=== PATIENT | female | born 1950 | race Hispanic/Latino ===

== ENCOUNTER 2017-10-23 19:21 | Emergency (ER) | payer MEDICARE ==
[~2017-10-23 19:21] MED LIST: ASPI81TA40 PO; CARV6.25 PO; ESOM40CA PO; HYDR25TA PO; INSLAN SQ; LATA2.5D2 OU; METF500T6 PO; METO100T14 PO; POTA20TA82 PO; PRAV80TA21 PO; TRAM50TA4 PO
[2017-10-23] MEDS ORDERED: IBUPROFEN 600 MG TABLET ONE (19:36)
[2017-10-23] MEDS ORDERED: CYCLOBENZAPRINE HCL 10 MG TABLET ONE (19:37)
== END 2017-10-23 21:30 | disposition home or self-care (01) ==
LOC: EDH 19:21
DX: G57.01 Lesion of sciatic nerve, right lower limb (principal); E11.9 Type 2 diabetes mellitus without complications; E78.5 Hyperlipidemia, unspecified; I10 Essential (primary) hypertension; Z91.041 Radiographic dye allergy status

== ENCOUNTER → 2019-10-04 | Outpatient (CLI) | payer MEDICARE ==
[~2019-10-04] MED LIST changes: +ACET1TAB15 PO; +AMLO10TA7 PO; +ATOR40TA69 PO; +CIPR-278 PO; +DEXL60CA3 PO; -ESOM40CA PO; -HYDR25TA PO; -INSLAN SQ; +INSU100I26 SQ; +METF-444 PO; -METF500T6 PO; -METO100T14 PO; +METR500T PO; +MONT10TA24 PO; -POTA20TA82 PO; -PRAV80TA21 PO; -TRAM50TA4 PO
[2019-10-04 14:43] LABS: BASOPHILS % (AUTO) 0.6 % (0.0-5.0); EOSINOPHILS % (AUTO) 2.1 % (0.0-8.0); HEMATOCRIT 34.4 % (36-48); LYMPHOCYTES % (AUTO) 22.6 % (21.0-51.0); MEAN CORPUSCULAR HEMOGLOBIN 26.1 pg (27.0-33.0); MEAN CORPUSCULAR VOLUME 81.5 fL (79-99); MONOCYTES % (AUTO) 5.2 % (3.0-13.0); NEUTROPHILS % (AUTO) 68.8 % (40.0-77.0); PLATELET COUNT (AUTO) 278 K/uL (130-400); RED BLOOD CELL COUNT(AUTO) 4.22 MIL/uL (4.00-5.50); RED CELL DISTRIBUTION WIDTH 16.6 % (11.0-15.5); WHITE BLOOD COUNT (AUTO) 7.1 K/uL (4.8-10.8)
== END | disposition home or self-care (01) ==
LOC: LAB 11:14
PROVIDERS: ATTEND Internal Medicine Gastroenterology
DX: R19.5 Other fecal abnormalities (principal); R19.4 Change in bowel habit
CPT/HCPCS: 36415; 85025; 87507

== ENCOUNTER 2020-01-30 18:06 | Inpatient (IN) | payer MEDICARE ==
[~2020-01-30] VITALS: Ht 152.4 cm; Wt 76.6 kg
[~2020-01-30 18:06] MED LIST changes: +AMLO-258 PO; -AMLO10TA7 PO; -MONT10TA24 PO; +MONT10TA26 PO
[2020-01-30] MEDS ORDERED: ONDANSETRON HCL 4 MG/2 ML VIAL ONE (18:38)
[2020-01-30 18:44] LABS: BASOPHILS % (AUTO) 0.2 % (0.0-5.0); EOSINOPHILS % (AUTO) 0.5 % (0.0-8.0); HEMATOCRIT 35.6 % (36-48); LYMPHOCYTES % (AUTO) 23.4 % (21.0-51.0); MEAN CORPUSCULAR HGB CONC 32.6 g/dL (32.0-36.0); MEAN CORPUSCULAR VOLUME 79.6 fL (79-99); MONOCYTES % (AUTO) 5.8 % (3.0-13.0); NEUTROPHILS % (AUTO) 69.7 % (40.0-77.0); PLATELET COUNT (AUTO) 271 K/uL (130-400); RED BLOOD CELL COUNT(AUTO) 4.47 MIL/uL (4.00-5.50); RED CELL DISTRIBUTION WIDTH 16.2 % (11.0-15.5); WHITE BLOOD COUNT (AUTO) 8.3 K/uL (4.8-10.8)
[2020-01-30] MEDS ORDERED: MORPHINE SULFATE 4 MG/1ML SYG ONE (18:48)
[2020-01-30 19:05] LABS: BILIRUBIN,TOTAL 0.5 mg/dL (0.2-1.0); CREATININE 0.9 mg/dL (0.5-1.5)
[2020-01-30 19:06] LABS: ALBUMIN 3.3 g/dL (3.5-5.0); BILIRUBIN,DIRECT 0.2 mg/dL (0.0-0.3); TOTAL PROTEIN, SERUM 7.9 g/dL (6.0-8.3)
[2020-01-30 19:08] LABS: POTASSIUM 2.9 mmol/L (3.5-5.1)
[2020-01-30] MEDS ORDERED: LIDOCAINE HCL-MPF 1% 2ML VIAL ONE (20:37)
[2020-01-30] MEDS ORDERED: POTASSIUM CHLORIDE 20MEQ/100ML 100 ML IV ONE (20:37)
[2020-01-30 20:42] LABS: APPEARANCE,URINE Cloudy (CLEAR); BILIRUBIN,URINE Negative (NEGATIVE); COLOR,URINE Yellow (YELLOW); GLUCOSE, URINE (UA) Negative (NEGATIVE); KETONES,URINE Negative (NEGATIVE); LEUKOCYTE ESTERASE ,URINE Small (NEGATIVE); NITRATE,URINE Negative (NEGATIVE); OCCULT BLOOD,URINE Negative (NEGATIVE); PROTEIN,URINE Negative (NEGATIVE)
[2020-01-30 20:54] LABS: BACTERIA,URINE Moderate /HPF (None Seen); RBC,URINE 0-1 /HPF (0-1)
[2020-01-30 20:55] LABS: SQUAMOUS EPITHELIAL CELL,UR Rare /HPF (0-2)
[2020-01-30 20:58] LABS: TRANSITIONAL EPI CELLS,URINE Rare /HPF (None Seen)
[2020-01-30] MEDS ORDERED: LIDOCAINE HCL-MPF 1% 2ML VIAL IJ PRN (21:00)
[2020-01-30] MEDS ORDERED: ONDANSETRON HCL 4 MG/2 ML VIAL IVP PRN (21:00)
[2020-01-30] MEDS ORDERED: CEFTRIAXONE SODIUM 1 GM ONE (21:15)
[2020-01-30 21:30] VITALS: BP 161/80
[2020-01-30] MEDS ORDERED: HYDROMORPHONE HCL 0.5 MG/0.5 ML ML IVP PRN (22:15)
[2020-01-30] MEDS ORDERED: OMEP20CA12 PO (22:45)
[2020-01-30] MEDS ORDERED: OXYB-66 PO (22:45)
[2020-01-30] MEDS ORDERED: HYDR25TA PO (22:45)
[2020-01-30] MEDS ORDERED: POTA-79 PO (22:45)
[2020-01-30] MEDS: LACTATED RINGERS 1000ML 1,000 ML IV SCH (22:51)
[2020-01-30] MEDS: FAMOTIDINE/PF 20 MG/2 ML VIAL IV SCH (22:51)
[2020-01-30 23:42] VITALS: BP 122/53
[2020-01-31] MEDS ORDERED: LIDOCAINE HCL-MPF 1% 2ML VIAL IV PRN (00:15)
--- NOTE | 2020-01-31 00:20 | NUR ---
JACKSON FULTON NOTIFIED OF MAGNESIUM LEVEL OF 1.6, NO NEW ORDERS
[2020-01-31] MEDS ORDERED: LIDOCAINE HCL-MPF 1% 2ML VIAL ONE (00:25)
[2020-01-31] MEDS: POTASSIUM CHLORIDE 20MEQ/100ML 100 ML IV PRN ×3 (00:27→10:49)
[2020-01-31 03:58] VITALS: BP 149/73
[2020-01-31 05:02] LABS: HEMATOCRIT 32.8 % (36-48); MEAN CORPUSCULAR HEMOGLOBIN 26.2 pg (27.0-33.0); MEAN CORPUSCULAR HGB CONC 32.3 g/dL (32.0-36.0); MEAN CORPUSCULAR VOLUME 81.2 fL (79-99); RED BLOOD CELL COUNT(AUTO) 4.04 MIL/uL (4.00-5.50); RED CELL DISTRIBUTION WIDTH 16.3 % (11.0-15.5); WHITE BLOOD COUNT (AUTO) 6.9 K/uL (4.8-10.8)
[2020-01-31 05:20] LABS: CREATININE 0.7 mg/dL (0.5-1.5); MAGNESIUM 1.5 mg/dL (1.80-2.40); POTASSIUM 3.3 mmol/L (3.5-5.1)
[2020-01-31] MEDS: LACTATED RINGERS 1000ML 1,000 ML IV SCH ×4 (06:39→20:31)
[2020-01-31 08:00] VITALS: BP 132/55
[2020-01-31] MEDS: FAMOTIDINE/PF 20 MG/2 ML VIAL IV SCH ×2 (09:17→20:24)
[2020-01-31 11:26] VITALS: BP 141/70
[2020-01-31] MEDS: MAGNESIUM 2GM PREMIX 50ML 50 ML IV SCH (14:50)
--- NOTE | 2020-01-31 15:08 | NUR ---
RD NOTIFICATION Pt NPO with Intestinal Obstruction, as per EMR. Pending surgical recommendations. NGT for suction. If NPO greater than five days, recommend altered means nutrition, as medically feasible. RD to continue to monitor. Please notify as additional nutrition concerns arise. Addendum: 01/31/20 at [address] Amended: Links added.
[2020-01-31 16:00] VITALS: BP 121/61
[2020-01-31 20:46] VITALS: BP 144/67
[2020-01-31 23:57] VITALS: BP 133/58
[2020-02-01 03:24] VITALS: BP 142/69
[2020-02-01] MEDS: LACTATED RINGERS 1000ML 1,000 ML IV SCH ×3 (04:08→20:50)
[2020-02-01 05:23] LABS: HEMATOCRIT 33.7 % (36-48); MEAN CORPUSCULAR HEMOGLOBIN 26.2 pg (27.0-33.0); MEAN CORPUSCULAR HGB CONC 32.3 g/dL (32.0-36.0); PLATELET COUNT (AUTO) 231 K/uL (130-400); RED BLOOD CELL COUNT(AUTO) 4.16 MIL/uL (4.00-5.50); RED CELL DISTRIBUTION WIDTH 15.9 % (11.0-15.5); WHITE BLOOD COUNT (AUTO) 5.8 K/uL (4.8-10.8)
[2020-02-01 05:51] LABS: CREATININE 0.7 mg/dL (0.5-1.5); MAGNESIUM 1.8 mg/dL (1.80-2.40); POTASSIUM 3.2 mmol/L (3.5-5.1)
[2020-02-01] MEDS: MAGNESIUM 2GM PREMIX 50ML 50 ML IV SCH (06:37)
[2020-02-01 07:47] VITALS: BP 153/78
[2020-02-01 09:04] LABS: BASOPHILS % (MANUAL) 1 % (0-2); EOSINOPHILS % (MANUAL) 2 % (1-6); LYMPHOCYTES % (MANUAL) 28 % (22-44); MONOCYTES % (MANUAL) 3 % (2-9); SEGMENTED NEUTROPHILS % 66 % (40-70)
[2020-02-01 09:05] LABS: MAN.DIFF COMMENT-IMPRESSION MANUAL DIFFERENTIAL; PLATELET MORPHOLOGY COMMENT ADEQUATE
[2020-02-01] MEDS: FAMOTIDINE/PF 20 MG/2 ML VIAL IV SCH ×2 (10:21→20:49)
[2020-02-01] MEDS: POTASSIUM CHLORIDE 10% ELIXIR 20 MEQ/15 ML UDCUP PO PRN ×3 (10:23→16:25)
[2020-02-01 10:51] VITALS: BP 156/69
--- NOTE | 2020-02-01 13:41 | NUR ---
[facility] CM spoke to pt's daughter Priya Ayala discussed dc plans. Pt is independent prior to admission, lives at home alone, daughter lives close by. Per daughter pt has provider at home 23hrs/wk. Denies any other equipments/services. Feels safe to go back home, daughter able to assist with transportation and needs as necessary. DC Plan to home once stable. CM to cont to follow up. Addendum: 02/01/20 at 1343 by CARLOS ARCHULETA LVN CM Amended: Links added.
--- NOTE | 2020-02-01 14:54 | NUR ---
I SPOKE TO DR FULTON ABOUT RESUMING HOME MEDS AND HE STATED MAYBE TOMORROW, NOT YET TODAY
[2020-02-01 16:00] VITALS: BP 146/77
--- NOTE | 2020-02-01 16:21 | NUR ---
1600 patient signed IM Letter, I faxed IM Letter to [phone] and placed in chart under consent tab.
[2020-02-01] MEDS: ENOXAPARIN SODIUM 40 MG/0.4 ML SYRINGE SQ SCH (16:25)
[2020-02-01] MEDS: INSULIN HUMULIN R 100 UNIT/ML 3ML SQ SCH ×2 (16:30→20:55)
[2020-02-01 19:49] VITALS: BP 154/65
[2020-02-02 01:06] VITALS: BP 154/65
[2020-02-02 03:52] VITALS: BP 138/68
[2020-02-02 04:32] LABS: BASOPHILS % (AUTO) 0.5 % (0.0-5.0); EOSINOPHILS % (AUTO) 2.9 % (0.0-8.0); HEMATOCRIT 34.8 % (36-48); LYMPHOCYTES % (AUTO) 23.4 % (21.0-51.0); MEAN CORPUSCULAR HEMOGLOBIN 26.2 pg (27.0-33.0); MEAN CORPUSCULAR HGB CONC 32.2 g/dL (32.0-36.0); MEAN CORPUSCULAR VOLUME 81.5 fL (79-99); MONOCYTES % (AUTO) 7.1 % (3.0-13.0); NEUTROPHILS % (AUTO) 65.6 % (40.0-77.0); PLATELET COUNT (AUTO) 239 K/uL (130-400); RED BLOOD CELL COUNT(AUTO) 4.27 MIL/uL (4.00-5.50); WHITE BLOOD COUNT (AUTO) 6.6 K/uL (4.8-10.8)
[2020-02-02] MEDS: LACTATED RINGERS 1000ML 1,000 ML IV SCH ×2 (04:48→18:22)
[2020-02-02 04:54] LABS: CREATININE 0.7 mg/dL (0.5-1.5); MAGNESIUM 1.9 mg/dL (1.80-2.40); POTASSIUM 3.3 mmol/L (3.5-5.1)
[2020-02-02] MEDS: INSULIN HUMULIN R 100 UNIT/ML 3ML SQ SCH ×4 (05:56→20:27)
[2020-02-02] MEDS: POTASSIUM CHLORIDE 20 MEQ ERTAB PO PRN ×3 (06:22→14:22)
[2020-02-02 07:30] VITALS: BP 166/76
[2020-02-02] MEDS: FAMOTIDINE/PF 20 MG/2 ML VIAL IV SCH ×2 (08:18→20:17)
[2020-02-02] MEDS: ENOXAPARIN SODIUM 40 MG/0.4 ML SYRINGE SQ SCH (08:22)
[2020-02-02 11:00] VITALS: BP 143/78
[2020-02-02] MEDS: CEFTRIAXONE SODIUM 1 GM IVP SCH (14:21)
[2020-02-02 16:00] VITALS: BP 145/74
[2020-02-02] MEDS: METFORMIN HCL 500 MG TABLET PO SCH (17:31)
[2020-02-02 19:42] VITALS: BP 128/67
[2020-02-02] MEDS: CARVEDILOL 6.25 MG TABLET PO SCH (20:18)
[2020-02-02] MEDS ORDERED: ATORVASTATIN CALCIUM 40 MG TABLET PO SCH (21:00)
[2020-02-02] MEDS ORDERED: LATANOPROST 2.5 ML DROPS OU SCH (21:00)
[2020-02-03 00:03] VITALS: BP 122/57
[2020-02-03] MEDS: LACTATED RINGERS 1000ML 1,000 ML IV SCH ×3 (00:37→14:11)
[2020-02-03 04:36] LABS: BASOPHILS % (AUTO) 0.4 % (0.0-5.0); EOSINOPHILS % (AUTO) 2.8 % (0.0-8.0); HEMATOCRIT 32.7 % (36-48); LYMPHOCYTES % (AUTO) 25.7 % (21.0-51.0); MEAN CORPUSCULAR HGB CONC 31.8 g/dL (32.0-36.0); MEAN CORPUSCULAR VOLUME 81.8 fL (79-99); MONOCYTES % (AUTO) 7.2 % (3.0-13.0); NEUTROPHILS % (AUTO) 62.9 % (40.0-77.0); PLATELET COUNT (AUTO) 237 K/uL (130-400); RED CELL DISTRIBUTION WIDTH 16.2 % (11.0-15.5); WHITE BLOOD COUNT (AUTO) 6.7 K/uL (4.8-10.8)
[2020-02-03 04:52] VITALS: BP 124/70
[2020-02-03 04:52] LABS: ALBUMIN 2.8 g/dL (3.5-5.0); BILIRUBIN,TOTAL 0.3 mg/dL (0.2-1.0); CREATININE 0.9 mg/dL (0.5-1.5); MAGNESIUM 1.7 mg/dL (1.80-2.40)
[2020-02-03] MEDS: INSULIN HUMULIN R 100 UNIT/ML 3ML SQ SCH ×3 (06:29→16:30)
[2020-02-03] MEDS: MAGNESIUM 2GM PREMIX 50ML 50 ML IV SCH (06:30)
[2020-02-03] MEDS ORDERED: INSULIN GLARGINE 100 UNITS/ML 10 ML VIAL SQ SCH (07:30)
[2020-02-03 08:00] VITALS: BP 148/75
[2020-02-03] MEDS: METFORMIN HCL 500 MG TABLET PO SCH ×2 (08:42→16:55)
[2020-02-03] MEDS: CARVEDILOL 6.25 MG TABLET PO SCH (08:42)
[2020-02-03] MEDS: ENOXAPARIN SODIUM 40 MG/0.4 ML SYRINGE SQ SCH (08:43)
[2020-02-03] MEDS: FAMOTIDINE/PF 20 MG/2 ML VIAL IV SCH (08:44)
[2020-02-03] MEDS ORDERED: AMLODIPINE BESYLATE 5 MG TAB PO SCH (09:00)
[2020-02-03] MEDS ORDERED: OXYBUTYNIN 5 MG TAB.SR.24H PO SCH (09:00)
[2020-02-03] MEDS ORDERED: POTASSIUM CHLORIDE 20 MEQ ERTAB PO SCH (09:00)
[2020-02-03] MEDS ORDERED: MONTELUKAST SODIUM 10 MG TAB PO SCH (09:00)
[2020-02-03 12:00] VITALS: BP 145/84
--- NOTE | 2020-02-03 13:12 | NUR ---
RD FOLLOW UP NG tube feeding discontinued. Diet advanced to 75gm CCD. Pt tolerating with no report of GI distress, fair appetite @75%. Recommend add 30mL ProMod BID RD to continue to monitor. Please notify as nutrition concerns arise. Thank you. Addendum: 02/03/20 at [address] RD Amended: Links added.
[2020-02-03] MEDS: CEFTRIAXONE SODIUM 1 GM IVP SCH (14:03)
[2020-02-03] MEDS ORDERED: CEPH500B PO (16:58)
--- NOTE | 2020-02-03 18:50 | NUR ---
Discharge instructions, prescribed medications and follow up appointments reviewed. Patient verbalized understanding of instructions. Prescription for Keflex provided to patient. Escorted patient to ER entrance via wheelchair where family received to transport home.
== END 2020-02-03 19:34 | disposition home or self-care (01) | DRG 389 ==
LOC: EDH 18:06 → EDHIP 20:19 → OBSVTOIN 20:19 → 3CH 21:01
PROVIDERS: ADMIT Internal Medicine Nephrology; ATTEND Internal Medicine Nephrology
DX: K56.609 Unspecified intestinal obstruction, unspecified as to partial versus complete obstruction (principal); N39.0 Urinary tract infection, site not specified; J98.11 Atelectasis; E87.6 Hypokalemia; D64.9 Anemia, unspecified; E83.42 Hypomagnesemia; B96.20 Unspecified Escherichia coli [E. coli] as the cause of diseases classified elsewhere; E03.9 Hypothyroidism, unspecified; E11.9 Type 2 diabetes mellitus without complications; E78.5 Hyperlipidemia, unspecified; I10 Essential (primary) hypertension; Z90.49 Acquired absence of other specified parts of digestive tract; Z90.710 Acquired absence of both cervix and uterus; Z91.013 Allergy to seafood; Z88.8 Allergy status to other drugs, medicaments and biological substances
CPT/HCPCS: 36415; 74018; 74176; 80048; 80053; 80076; 81001; 82550; 82948; 83690; 83735; 84484; 85025; 85027; 87077; 87088; 87186; 93005; G0378; J0696; J1170; J1650; J1815; J2270; J2405; J3475; J3480; J3490; J7120

== ENCOUNTER 2020-07-07 15:24 | Inpatient (IN) | payer MEDICARE ==
[~2020-07-07] VITALS: Ht 152.4 cm; Wt 72.5 kg
[~2020-07-07 15:24] MED LIST changes: -ACET1TAB15 PO; -ASPI81TA40 PO; +CEPH500B PO; -CIPR-278 PO; -DEXL60CA3 PO; -METR500T PO; +OMEP20CA12 PO; +OXYB-66 PO
[2020-07-07] MEDS ORDERED: ONDANSETRON HCL 4 MG/2 ML VIAL ONE (15:49)
[2020-07-07] MEDS ORDERED: MORPHINE SULFATE 2 MG/ML 1ML SYG ONE (15:50)
[2020-07-07 15:51] LABS: BASOPHILS % (AUTO) 0.3 % (0.0-5.0); EOSINOPHILS % (AUTO) 0.5 % (0.0-8.0); HEMATOCRIT 39.5 % (36-48); LYMPHOCYTES % (AUTO) 17.1 % (21.0-51.0); MEAN CORPUSCULAR HEMOGLOBIN 26.3 pg (27.0-33.0); MEAN CORPUSCULAR HGB CONC 32.4 g/dL (32.0-36.0); MEAN CORPUSCULAR VOLUME 81.3 fL (79-99); MONOCYTES % (AUTO) 4.7 % (3.0-13.0); NEUTROPHILS % (AUTO) 77.1 % (40.0-77.0); PLATELET COUNT (AUTO) 276 K/uL (130-400); RED BLOOD CELL COUNT(AUTO) 4.86 MIL/uL (4.00-5.50); RED CELL DISTRIBUTION WIDTH 16.4 % (11.0-15.5); WHITE BLOOD COUNT (AUTO) 9.1 K/uL (4.8-10.8)
[2020-07-07 16:00] LABS: CREATININE 0.9 mg/dL (0.5-1.5); POTASSIUM 3.5 mmol/L (3.5-5.1)
[2020-07-07 16:05] LABS: ALBUMIN 3.8 g/dL (3.5-5.0); BILIRUBIN,TOTAL 0.6 mg/dL (0.2-1.0); TOTAL PROTEIN, SERUM 8.9 g/dL (6.0-8.3)
[2020-07-07 19:48] VITALS: BP 128/72
[2020-07-07] MEDS ORDERED: ONDANSETRON HCL 4 MG/2 ML VIAL IVP PRN (20:15)
[2020-07-07] MEDS: METOCLOPRAMIDE 10 MG/2 ML VIAL IVP SCH (20:26)
[2020-07-07] MEDS: SODIUM CHLORIDE 0.9% 1000ML 1,000 ML IV SCH (20:28)
--- NOTE | 2020-07-07 20:30 | NUR ---
covid rapid test presumptive negative, reported by lab pack chemist.
[2020-07-07] MEDS ORDERED: IBUP-2070 PO (20:52)
[2020-07-07] MEDS ORDERED: POTA20TA82 PO (20:52)
[2020-07-07] MEDS ORDERED: LOSA1TAB54 PO (20:52)
[2020-07-07] MEDS ORDERED: METF-446 PO (20:52)
[2020-07-07] MEDS ORDERED: HYDR25TA PO (20:52)
[2020-07-08] VITALS (7 sets, daily range): BP systolic 120–153; BP diastolic 59–82
[2020-07-08] MEDS: SODIUM CHLORIDE 0.9% 1000ML 1,000 ML IV SCH (03:13)
[2020-07-08] MEDS: METOCLOPRAMIDE 10 MG/2 ML VIAL IVP SCH ×3 (05:14→21:18)
[2020-07-08 05:18] LABS: HEMATOCRIT 35.5 % (36-48); MEAN CORPUSCULAR HGB CONC 31.8 g/dL (32.0-36.0); MEAN CORPUSCULAR VOLUME 81.6 fL (79-99); RED BLOOD CELL COUNT(AUTO) 4.35 MIL/uL (4.00-5.50); RED CELL DISTRIBUTION WIDTH 16.2 % (11.0-15.5); WHITE BLOOD COUNT (AUTO) 7.6 K/uL (4.8-10.8)
[2020-07-08 05:32] LABS: CREATININE 0.7 mg/dL (0.5-1.5); POTASSIUM 3.4 mmol/L (3.5-5.1)
--- NOTE | 2020-07-08 08:00 | NUR ---
PT . AAOX3 REVIEW,PLAN OF CARE, NG TO HER LT NARE , AND RETURN GASTRIC , SCREATION . . . YELLOWISH, THICK . ABD SOFT, PT S TATED THAT SHE HAS BEEN GAS, DENIES ANY ABD PAIN, CALL LIGHT IN REACH.
[2020-07-08] MEDS: PANTOPRAZOLE 40 MG/VIAL IVP SCH (10:20)
[2020-07-08] MEDS ORDERED: DEXTROSE 50%-WATER 50 ML DISP.SYRIN IV ONE (11:41)
[2020-07-08] MEDS ORDERED: DEXTROSE 50%-WATER 50 ML DISP.SYRIN IV SCH (11:45)
--- NOTE | 2020-07-08 11:50 | NUR ---
BLOOD SUGAR OF 61 , CALL[address] DR. CURRY WITH DR. WALLACE TO FOLLOW
--- NOTE | 2020-07-08 11:55 | NUR ---
GAVE 1/2 OF DEXTROSE 50% IVP FOR BLOOD SUGAR OF 61
--- NOTE | 2020-07-08 13:30 | NUR ---
DR. CURRY HERE , AND UPDATE WITH TO FOLLOW FOLLOWUP BLOOD SUGAR OF 112,
[2020-07-08] MEDS: LACTATED RINGERS 1000ML 1,000 ML IV SCH (16:20)
--- NOTE | 2020-07-08 19:00 | NUR ---
D/C PLAN CM spoke to pt regarding d/c planning. Pt is ind. and lives alone. States she will be moving in with daughter when discharged. States daughter assists in care as needed. Has wk at home. No needs verbalized or identified. Plan to home. CM to f/u. Addendum: 07/08/20 at 1902 by LIONEL SANTA CM Amended: Links added.
[2020-07-09 04:11] VITALS: BP 147/79
[2020-07-09 05:08] LABS: BASOPHILS % (AUTO) 0.4 % (0.0-5.0); HEMATOCRIT 35.3 % (36-48); LYMPHOCYTES % (AUTO) 18.8 % (21.0-51.0); MEAN CORPUSCULAR HEMOGLOBIN 25.9 pg (27.0-33.0); MEAN CORPUSCULAR HGB CONC 31.7 g/dL (32.0-36.0); MEAN CORPUSCULAR VOLUME 81.5 fL (79-99); MONOCYTES % (AUTO) 6.7 % (3.0-13.0); PLATELET COUNT (AUTO) 199 K/uL (130-400); RED BLOOD CELL COUNT(AUTO) 4.33 MIL/uL (4.00-5.50); RED CELL DISTRIBUTION WIDTH 16.4 % (11.0-15.5); WHITE BLOOD COUNT (AUTO) 6.9 K/uL (4.8-10.8)
[2020-07-09 05:23] LABS: CREATININE 0.8 mg/dL (0.5-1.5); PHOSPHORUS 2.6 mg/dL (2.5-4.9)
[2020-07-09 05:54] LABS: POTASSIUM 2.9 mmol/L (3.5-5.1)
[2020-07-09] MEDS: METOCLOPRAMIDE 10 MG/2 ML VIAL IVP SCH ×3 (06:02→19:57)
[2020-07-09 08:21] VITALS: BP 142/77
[2020-07-09] MEDS: PANTOPRAZOLE 40 MG/VIAL IVP SCH (08:36)
[2020-07-09] MEDS: LACTATED RINGERS 1000ML 1,000 ML IV SCH ×5 (08:36→21:29)
--- NOTE | 2020-07-09 10:10 | NUR ---
RD NOTIFICATION Pt admitted due to SBO. Pt currently NPO awaiting diet advancement. RD will continue to monitor PO status/tolerance and PO intake. Pt had a low blood sugar 07/08/20. Pt's BMI is of 31.2 indicative of obesity. LABS: K 2.9, BG 79, Alb 3.8, Tot Pro 8.9 Last Bowel Movement: 07/07/20 RD recommendation: When medically feasible advance to a heart healthy diet with a 75 gm CC modifier. Monitor BG levels if necessary adjust to a 60 gm CC modifier. Monitor pt's potassium levels, consider potassium replacement. Addendum: 07/09/20 at [address] Amended: Links added.
[2020-07-09] MEDS ORDERED: LIDOCAINE HCL-MPF 1% 2ML VIAL ONE (10:13)
[2020-07-09] MEDS: POTASSIUM CHLORIDE 20 MEQ/100 ML BAG IV SCH (10:24)
[2020-07-09 11:36] VITALS: BP_SYST 70
[2020-07-09 16:43] VITALS: BP 128/78
[2020-07-09 19:00] VITALS: BP 128/68
[2020-07-10] VITALS: BP 138/80
[2020-07-10 04:00] VITALS: BP 115/55
[2020-07-10 04:32] LABS: CREATININE 0.6 mg/dL (0.5-1.5); POTASSIUM 3.4 mmol/L (3.5-5.1)
[2020-07-10] MEDS: METOCLOPRAMIDE 10 MG/2 ML VIAL IVP SCH (05:01)
[2020-07-10] MEDS: LACTATED RINGERS 1000ML 1,000 ML IV SCH (05:13)
[2020-07-10 07:55] VITALS: BP 138/61
[2020-07-10] MEDS: PANTOPRAZOLE 40 MG/VIAL IVP SCH (08:52)
[2020-07-10] MEDS: POTASSIUM CHLORIDE 20 MEQ/100 ML BAG IV SCH (09:15)
[2020-07-10 11:14] VITALS: BP 148/85
--- NOTE | 2020-07-10 14:35 | NUR ---
DISCHARGE PATIENT GIVEN INSTRUCTIONS VIA TEACH BACK. 20G PIV TO BECK DISCONTINUED, TIP INTACT. PATIENT TO FOLLOW UP WITH DR. FULTON AND DR. MERINO IN 1 TO 2 WEEKS. CONTINUE ON GI SOFT DIET AND TAKE MEDICATIONS ORDERED. PATIENT STABLE AT THIS TIME. PATIENT WHEELED TO [facility] FOR DISCHARGE BY THUY WILSON.
== END 2020-07-10 15:15 | disposition home or self-care (01) | DRG 390 ==
LOC: EDH 15:24 → EDHIP 18:22 → 3AH 19:28
PROVIDERS: ADMIT Internal Medicine Nephrology; ATTEND Internal Medicine Nephrology
PROC: 0D9670Z Drainage of Stomach with Drainage Device, Via Natural or Artificial Opening (ICD-10-PCS; principal; 2020-07-07)
DX: K56.609 Unspecified intestinal obstruction, unspecified as to partial versus complete obstruction (principal); I10 Essential (primary) hypertension; E78.00 Pure hypercholesterolemia, unspecified; E87.8 Other disorders of electrolyte and fluid balance, not elsewhere classified; E11.649 Type 2 diabetes mellitus with hypoglycemia without coma; Z90.710 Acquired absence of both cervix and uterus; Z91.013 Allergy to seafood; Z91.041 Radiographic dye allergy status; Z83.3 Family history of diabetes mellitus; Z82.49 Family history of ischemic heart disease and other diseases of the circulatory system
CPT/HCPCS: 36415; 74176; 80048; 80053; 82948; 83690; 84100; 84484; 85025; 85027; 87426; 93005; C9113; G0378; J2405; J2765; J3480; J3490; J7070; J7120; U0003

== ENCOUNTER 2021-02-20 15:54 | Emergency (ER) | payer OTHER, MEDICARE ==
[~2021-02-20] VITALS: Ht 154.9 cm; Wt 83.9 kg
[~2021-02-20 15:54] MED LIST changes: +IBUP-2070 PO; +LATA2.5D14 OU; -LATA2.5D2 OU; +LOSA1TAB54 PO; -METF-444 PO; +METF-446 PO; -MONT10TA26 PO; +MONT10TA32 PO; +POTA20TA82 PO
[2021-02-20] MEDS ORDERED: HYDROCODONE/ACETAMINOPHEN 10/325 MG TAB PO ONE (16:15)
[2021-02-20] MEDS ORDERED: TRAM1TAB PO (16:24)
[2021-02-20 16:31] VITALS: BP 119/47
== END 2021-02-20 16:54 | disposition home or self-care (01) ==
LOC: EDH 15:54
DX: M17.11 Unilateral primary osteoarthritis, right knee (principal); I10 Essential (primary) hypertension; E66.9 Obesity, unspecified; E78.5 Hyperlipidemia, unspecified; E11.9 Type 2 diabetes mellitus without complications; Z91.041 Radiographic dye allergy status; Z91.013 Allergy to seafood; Z79.899 Other long term (current) drug therapy
CPT/HCPCS: 73562

== ENCOUNTER → 2022-08-04 | Outpatient (CLI) | payer OTHER, MEDICARE ==
[~2022-08-04] MED LIST changes: +GADOTERATE MEGLUMINE 10 MMOL/20 ML VIAL IV ONE; +MONT-39 PO; -MONT10TA32 PO; +POTA-202 PO; -POTA20TA82 PO; +TRAM1TAB2 PO
== END | disposition home or self-care (01) ==
LOC: RAH 07:47
PROVIDERS: ATTEND Internal Medicine Gastroenterology
DX: R93.2 Abnormal findings on diagnostic imaging of liver and biliary tract (principal); K83.1 Obstruction of bile duct
CPT/HCPCS: 74183; A9575

== ENCOUNTER → 2023-08-17 | Outpatient (CLI) | payer OTHER, MEDICARE ==
[~2023-08-17] MED LIST changes: -GADOTERATE MEGLUMINE 10 MMOL/20 ML VIAL IV ONE
[2023-08-17 16:04] LABS: BASOPHILS # (AUTO) 0.03 K/uL (0.00-0.20); BASOPHILS % (AUTO) 0.4 % (0.0-5.0); EOSINOPHILS % (AUTO) 1.5 % (0.0-8.0); HEMATOCRIT 33.1 % (36-48); IMMATURE GRANULOCYTE ABSOLUTE 0.03 K/uL (0-1); LYMPHOCYTES # (AUTO) 1.7 K/uL (1.0-4.8); LYMPHOCYTES % (AUTO) 25.1 % (21.0-51.0); MEAN CORPUSCULAR HGB CONC 30.8 g/dL (32.0-36.0); MEAN CORPUSCULAR VOLUME 84.4 fL (79-99); MONOCYTES # (AUTO) 0.5 K/uL (0.1-1.0); MONOCYTES % (AUTO) 7.4 % (3.0-13.0); NEUTROPHILS # (AUTO) 4.4 K/uL (1.8-7.7); NEUTROPHILS % (AUTO) 65.2 % (40.0-77.0); PLATELET COUNT (AUTO) 273 K/uL (130-400); RED BLOOD CELL COUNT(AUTO) 3.92 MIL/uL (4.00-5.50); RED CELL DISTRIBUTION WIDTH 15.4 % (11.0-15.5); WHITE BLOOD COUNT (AUTO) 6.8 K/uL (4.8-10.8)
[2023-08-17 16:19] LABS: INR 0.99 (0.85-1.15); PROTHROMBIN TIME 11.5 SEC (9.6-11.6)
[2023-08-17 16:22] LABS: ALBUMIN 2.8 g/dL (3.5-5.0); BILIRUBIN,TOTAL 0.4 mg/dL (0.2-1.0); CREATININE 0.9 mg/dL (0.5-1.5); POTASSIUM 3.8 mmol/L (3.5-5.1); TOTAL PROTEIN, SERUM 8.8 g/dL (6.0-8.3)
== END | disposition home or self-care (01) ==
LOC: LAB 14:50
PROVIDERS: ATTEND Internal Medicine
DX: R10.30 Lower abdominal pain, unspecified (principal)
CPT/HCPCS: 36415; 80053; 85025; 85610

== ENCOUNTER → 2023-12-11 | Outpatient (CLI) | payer OTHER, MEDICARE ==
[~2023-12-11] MED LIST changes: +AMOX1TAB16 PO; -CEPH500B PO; -IBUP-2070 PO; -LOSA1TAB54 PO; -METF-446 PO; -POTA-202 PO
== END | disposition home or self-care (01) ==
LOC: RAH 09:37
PROVIDERS: ATTEND Specialist
DX: K63.2 Fistula of intestine (principal)
CPT/HCPCS: 74250

== ENCOUNTER 2023-12-24 10:27 | Emergency (ER) | payer OTHER, MEDICARE ==
[~2023-12-24] VITALS: Ht 152.4 cm; Wt 69.9 kg
[2023-12-24 12:34] LABS: BASOPHILS # (AUTO) 0.04 K/uL (0.00-0.20); BASOPHILS % (AUTO) 0.7 % (0.0-5.0); EOSINOPHILS # (AUTO) 0.09 K/uL (0.00-0.70); EOSINOPHILS % (AUTO) 1.5 % (0.0-8.0); HEMATOCRIT 38.7 % (36-48); IMMATURE GRANULOCYTE ABSOLUTE 0.01 K/uL (0-1); LYMPHOCYTES # (AUTO) 1.7 K/uL (1.0-4.8); LYMPHOCYTES % (AUTO) 28.4 % (21.0-51.0); MEAN CORPUSCULAR HEMOGLOBIN 29.5 pg (27.0-33.0); MEAN CORPUSCULAR HGB CONC 33.1 g/dL (32.0-36.0); MEAN CORPUSCULAR VOLUME 89.2 fL (79-99); MONOCYTES # (AUTO) 0.6 K/uL (0.1-1.0); MONOCYTES % (AUTO) 9.4 % (3.0-13.0); NEUTROPHILS # (AUTO) 3.5 K/uL (1.8-7.7); NEUTROPHILS % (AUTO) 59.8 % (40.0-77.0); PLATELET COUNT (AUTO) 175 K/uL (130-400); RED BLOOD CELL COUNT(AUTO) 4.34 MIL/uL (4.00-5.50); RED CELL DISTRIBUTION WIDTH 14.5 % (11.0-15.5); WHITE BLOOD COUNT (AUTO) 5.9 K/uL (4.8-10.8)
[2023-12-24 12:49] LABS: CREATININE 0.9 mg/dL (0.5-1.0); POTASSIUM 3.7 mmol/L (3.5-5.1)
[2023-12-24 12:53] LABS: ALBUMIN 2.8 g/dL (3.5-5.0); BILIRUBIN,TOTAL 0.5 mg/dL (0.2-1.0); TOTAL PROTEIN, SERUM 8.1 g/dL (6.0-8.3)
[2023-12-24 17:33] VITALS: BP 154/75; PULSE 66; RESP 16; O2SAT 98
== END 2023-12-24 17:36 | disposition home or self-care (01) ==
LOC: EDH 10:27
DX: K63.2 Fistula of intestine (principal); I10 Essential (primary) hypertension; E11.9 Type 2 diabetes mellitus without complications; E78.00 Pure hypercholesterolemia, unspecified; Z98.890 Other specified postprocedural states; Z90.49 Acquired absence of other specified parts of digestive tract; Z90.710 Acquired absence of both cervix and uterus; Z91.041 Radiographic dye allergy status; Z88.8 Allergy status to other drugs, medicaments and biological substances
CPT/HCPCS: 36415; 74176; 80053; 83605; 85025; 87040; 87070; 87076; 87077; 87186

== ENCOUNTER → 2024-09-07 | Outpatient (CLI) | payer OTHER, MEDICARE ==
--- NOTE | 2024-09-07 11:35 | HMCIMG ---
US ABDOMINAL COMPLETE HISTORY: Abnormal left COMPARISON: CT from 11/11/2023 TECHNIQUE: Multiple transverse and longitudinal ultrasound images of the abdomen were obtained. FINDINGS: Abdominal aorta and inferior vena cava are unremarkable. The visualized portion of the pancreas is within normal limits. Liver measures 16.7 cm. Liver is echogenic consistent with liver parenchymal disease. Bladder has been removed. There is pneumobilia. Common duct measures 11 mm. No evidence of gallbladder wall thickening is seen. Both kidneys are seen. Right kidney measures 10.1 x 4.8 x 4.2 cm. Left kidney measures 9.6 x 4.4 x 5 cm. No hydronephrosis is seen of the both kidneys. The spleen is grossly unremarkable. IMPRESSION: 1. Post cholecystectomy. Pneumobilia. Borderline ductal dilatation is seen. 2. No hydronephrosis is seen.
== END | disposition home or self-care (01) ==
LOC: RAH 08:15
PROVIDERS: ATTEND Internal Medicine
DX: R89.9 Unspecified abnormal finding in specimens from other organs, systems and tissues (principal); Z90.49 Acquired absence of other specified parts of digestive tract
CPT/HCPCS: 76700

== ENCOUNTER → 2025-04-11 | Outpatient (CLI) | payer OTHER, MEDICAID ==
[~2025-04-11] MED LIST changes: -LATA2.5D14 OU; +LATA2.5D7 OU
--- NOTE | 2025-04-25 13:50 | HMCIMG ---
CLINICAL INDICATION: Unspecified menopausal and perimenopausal disorder COMPARISON: None available TECHNIQUE: Bone densitometry is performed of the lumbar spine and left hip. FINDINGS: Total BMD of lumbar spine is 39.71 g/cm2 with a T-score of -2.4 and Z-score is -0.1. Total BMD of left hip is 23.59 g/cm2 with a T-score of -1.4 and Z-score is 0.2. FRAX SCORE: Not obtained due to T score -2.5 or below IMPRESSION: 1. Borderline osteoporosis/osteopenia of lumbar spine and left hip. World Health Organization criteria for BMD interpretation classify patients as Normal (T-score at or above -1.0), Osteopenic (T-score between -1.0 and -2.5), or Osteoporotic (T-score at or below -2.5). FRAX SCORE: A. All treatment decisions require clinical judgment and consideration of individual patient factors, including patient preferences, comorbidities, previous drug use, risk factors not captured in the FRAX model (e.g., frailty, falls, vitamin D deficiency, increased bone turnover, interval significant decline in bone density) and possible [id number]-estimation of fracture risk by FRAX. B. In addition, the NOF Guide recommends that FDA-approved medical therapies be considered in postmenopausal women and men age greater than or equal to 50 years with a: i. Hip or vertebral (clinical or morphometric) fracture. ii. T-score of less than or equal to -2.5 at the spine or hip. iii. Ten-year fracture probability by FRAX of greater than or equal to 3% for hip fracture of greater than or equal to 20% for major osteoporotic fracture.
== END | disposition home or self-care (01) ==
LOC: RAH 14:13
PROVIDERS: ATTEND Nurse Practitioner Adult Health
DX: N95.9 Unspecified menopausal and perimenopausal disorder (principal)
CPT/HCPCS: 77080

== ENCOUNTER → 2025-06-23 | Outpatient (CLI) | payer OTHER, MEDICARE ==
--- NOTE | 2025-06-23 16:17 | HMCIMG ---
US ARTERIAL BILAT LOW EXT DUPL HISTORY: I73.9 PVD no prior available TECHNIQUE: Duplex Doppler evaluation of the arteries of both legs performed. FINDINGS: Grayscale images revealed intimal calcifications throughout both lower extremities. Peak systolic velocities and wave patterns were documented, as follows: RIGHT LEG Common femoral: 125 cm/s Triphasic Superficial femoral prox: 124 cm/s Triphasic Superficial femoral mid: 99 cm/s Triphasic Superficial femoral distal: 67 cm/s Triphasic Popliteal: 91 cm/s Triphasic Posterior tibial: 64 cm/s Triphasic Dorsalis pedis: 92 cm/s Triphasic LEFT LEG Common femoral: 113 cm/s Triphasic Superficial femoral prox: 91 cm/s Triphasic Superficial femoral mid: 91 cm/s Triphasic Superficial femoral distal: 68 cm/s Triphasic Popliteal: 68 cm/s Triphasic Posterior tibial: 75 cm/s Triphasic Dorsalis pedis: 82 cm/s Triphasic There is multilevel atherosclerotic changes with calcified plaque. Right inguinal region there is a lymph node measuring 2.2 x 0.5 x 0.87. IMPRESSION: Atherosclerotic changes with calcified plaque with no evidence of any hemodynamically significant stenosis.
== END | disposition home or self-care (01) ==
LOC: RAH 12:34
PROVIDERS: ATTEND Nurse Practitioner Adult Health
DX: I70.203 Unspecified atherosclerosis of native arteries of extremities, bilateral legs (principal)
CPT/HCPCS: 93925